=== PATIENT | male | born 1965 ===

== ENCOUNTER 2019-06-15 15:22 | Emergency (ER) | payer BC ==
[2019-06-15 15:37] VITALS: BP 141/47
[2019-06-15] MEDS ORDERED: DOXYcycline CAP(*) 100 MG PO ONE (15:49)
--- NOTE | 2019-06-15 15:49 | ED ---
Skin Complaint - HPI Summary HPI Summary: 53 yr old male with the complaint of tick bite to the right buttocks. His pulled the tick off of him this morning, it was engorged, and he feels it was on for a few days. No pain or redness. - History of Current Complaint Chief Complaint: [facility] Time Seen by Provider: 06/15/19 15:36 Stated Complaint: TICK BITE Pain Intensity: 0 - Allergy/Home Medications Allergies/Adverse Reactions: Allergies Allergy/AdvReac Type Severity Reaction Status Date / Time No Known Allergies Allergy Verified 06/15/19 15:38 Home Medications: Home Medications NK [No Home Medications Reported] 06/15/19 [History Confirmed 06/15/19] PMH/Surg Hx/FS Hx/Imm Hx Respiratory History: Reports: Hx Asthma Infectious Disease History: Yes Infectious Disease History: Reports: Hx Shingles - 2008 Denies: Traveled Outside the [place] in Last 30 Days - Family History Known Family History: Positive: None - Social History Occupation: Employed Full-time Alcohol Use: Occasionally Substance Use Type: Reports: None Smoking Status (MU): Former Smoker Review of Systems Constitutional: Negative Positive: Other - tick bite All Other Systems Reviewed And Are Negative: Yes Physical Exam Triage Information Reviewed: Yes Vital Signs On Initial Exam: Initial Vitals Temp Pulse Resp BP Pulse Ox 97.4 F 72 16 141/47 100 06/15/19 15:33 06/15/19 15:33 06/15/19 15:33 06/15/19 15:33 06/15/19 15:33 Vital Signs Reviewed: Yes Appearance: Positive: Well-Appearing, No Pain Distress Skin: Positive: Warm, Skin Color Reflects Adequate Perfusion, Other - there is a bite emre right buttocks without cellulitis or bulls eye emre. No FB. Head/Face: Positive: Normal Head/Face Inspection Eyes: Positive: EOMI ENT: Positive: Normal ENT inspection Neck: Positive: Nontender Respiratory/Lung Sounds: Positive: Clear to Auscultation, Breath Sounds Present Cardiovascular: Positive: RRR. Negative: Murmur Abdomen Description: Negative: Distended Musculoskeletal: Positive: Strength/ROM Intact Neurological: Positive: Sensory/Motor Intact, Alert, Oriented to Person Place, Time, CN Intact II-III Psychiatric: Positive: Normal Diagnostics - Vital Signs Vital Signs Temp Pulse Resp BP Pulse Ox 06/15/19 15:33 97.4 F 72 16 141/47 100 - Laboratory Lab Statement: Any lab studies that have been ordered have been reviewed, and results considered in the medical decision making process. Course/Dx - Course Course Of Treatment: Tick bite. Doxy given 200 mg times one. DC home - Diagnoses Provider Diagnoses: Tick bite Discharge ED - Sign-Out/Discharge Documenting (check all that apply): Patient Departure All imaging exams completed and their final reports reviewed: No Studies - Discharge Plan Condition: Good Disposition: HOME Patient Education Materials: Tick Bite (ED) Referrals: Leandro Galvan MD [Primary Care Provider] - 2 Days - Billing Disposition and Condition Condition: GOOD Disposition: Home
== END 2019-06-15 15:56 | disposition home or self-care (01) ==
LOC: UCCORT 15:22
DX: S30.860A Insect bite (nonvenomous) of lower back and pelvis, initial encounter (principal); J45.909 Unspecified asthma, uncomplicated; Z87.891 Personal history of nicotine dependence; W57.XXXA Bitten or stung by nonvenomous insect and other nonvenomous arthropods, initial encounter; Y92.9 Unspecified place or not applicable
CPT/HCPCS: 99212; A9270-GY; G0463